=== PATIENT | male | born 1950 | race Caucasian/White ===

== ENCOUNTER 2018-05-31 05:55 | Day surgery (SDC) | payer OTHER | END 2018-05-31 09:45 | disposition home or self-care (01) | LOC: AMB-ENDOS 05:55 | DX: K57.30 Diverticulosis of large intestine without perforation or abscess without bleeding (principal); K64.0 First degree hemorrhoids ==

== ENCOUNTER 2018-07-29 07:33 | Inpatient (IN) | payer OTHER ==
[~2018-07-29] VITALS: Ht 157.5 cm; Wt 73.9 kg
[~2018-07-29 07:33] MED LIST: ALLEGRA ALLERGY60 MG PO; DIOVAN160 M1 PO; NEXIUM 24HR20 M1 PO; SILDENAFIL CITR25 MG PO; TRANXENE T-TAB7.5 MG PO
== END 2018-08-23 10:20 | DRG 331 ==
LOC: SURH 07-30 12:00 → EDSTATUS 07-30 14:52 → CIR.AMB 07-30 14:52 → SURH 07-30 14:53 → SURG 08-20 08:57 → O/R 08-20 08:57 → SURH 08-20 12:00 → SURG 08-20 20:41 → SURH 08-20 23:30 → SURG 08-23 10:20
PROVIDERS: Colon & Rectal Surgery
PROC: 0DJD8ZZ Inspection of Lower Intestinal Tract, Via Natural or Artificial Opening Endoscopic (ICD-10-PCS; 2018-08-20)
PROC: 0DTN4ZZ Resection of Sigmoid Colon, Percutaneous Endoscopic Approach (ICD-10-PCS; principal; 2018-08-20 23:30)
DX: K57.32 Diverticulitis of large intestine without perforation or abscess without bleeding (principal); G47.33 Obstructive sleep apnea (adult) (pediatric); I11.9 Hypertensive heart disease without heart failure; R73.01 Impaired fasting glucose